=== PATIENT | female | born 1980 | race Caucasian/White ===

== ENCOUNTER → 2024-05-01 | Outpatient (CLI) | payer OTHER ==
[2024-05-01 18:46] LABS: Basophils # (A) 0.03 X 10*3/uL (0.00-0.10); Basophils % (A) 0.5 %; Eosinophils # (A) 0.17 X 10*3/uL (0.04-0.35); Eosinophils % (A) 2.6 %; HCT 45.1 % (37.2-46.3); HGB 14.7 g/dL (12.0-15.0); Lymphocytes # (A) 1.64 X 10*3/uL (0.90-5.00); Lymphocytes % (A) 24.7 %; MCH 31.5 pg (27.0-32.0); MCHC 32.6 g/dL (32.0-37.0); MCV 96.6 FL (80.0-97.0); Mean Platelet Volume 9.8 FL (9.5-12.2); Monocytes # (A) 0.32 X 10*3/uL (0.20-1.00); Monocytes % (A) 4.8 %; NRBC Per 100 WBC 0 X 10*3/uL (0.00-0.01); Neutrophils # (A) 4.46 X 10*3/uL (1.80-7.70); Neutrophils % (A) 67.1 %; Platelet Count 279 X 10*3/uL (140-440); RBC 4.67 X 10*6/uL (4.10-5.20); RDW 12.3 % (11.5-14.5); WBC 6.64 X 10*3/uL (4.50-10.00)
[2024-05-01 18:55] LABS: Blood Urea Nitrogen 12.8 mg/dL (9.0-27.0); Carbon Dioxide 24.1 mmol/L (21.6-31.8); Chloride 102 mmol/L (96-109); Glucose 138 mg/dL (70-110); Sodium 141 mmol/L (135-145)
== END | disposition home or self-care (01) ==
LOC: LABPAT 12:08
PROVIDERS: ATTEND Obstetrics & Gynecology Obstetrics
DX: Z01.812 Encounter for preprocedural laboratory examination (principal); D25.9 Leiomyoma of uterus, unspecified; N85.2 Hypertrophy of uterus; N92.0 Excessive and frequent menstruation with regular cycle
CPT/HCPCS: 36415; 80051; 82565; 82947; 84520; 85025; 86850; 86900; 86901; 87086

== ENCOUNTER 2024-05-09 06:44 | Day surgery (SDC) | payer OTHER ==
[2024-05-06 10:22] VITALS: BMI 25.7
[2024-05-09] MEDS ORDERED: fentaNYL (PF) 50 MCG/ML 2 ML AMP IVP PRN (07:29)
[2024-05-09] MEDS ORDERED: MIDAZOLAM 2 MG/2 ML VIAL IV PRN (07:29)
[2024-05-09] MEDS ORDERED: HYDROmorphone 0.5 MG/0.5 ML SYRINGE IVP PRN ×2 (07:29→08:18)
[2024-05-09] MEDS: LACTATED RINGERS 1,000 ML IV SCH (07:35)
[2024-05-09] MEDS: LIDOCAINE 1% (10MG/ML) FOR IV START INTRADERMA PRN (07:35)
[2024-05-09] MEDS: IV FLUID CONTINUATION 1,000 ML IV ONE (07:35)
[2024-05-09] MEDS: MIDAZOLAM 2 MG/2 ML VIAL IVP ONE (07:55)
[2024-05-09] MEDS: fentaNYL (PF) 50 MCG/ML 2 ML AMP IVP ONE (07:55)
[2024-05-09] MEDS: ONDANSETRON 4 MG/2 ML VIAL IVP ONE (08:06)
[2024-05-09] MEDS: DEXAMETHASONE SOD PHOSPHATE 4 MG/ML 1 ML VIAL IV ONE (08:06)
--- NOTE | 2024-05-09 08:08 | P.ANPRN ---
Procedure Note - Anesthesia - Epidural/Spinal Spinal Time Out Performed: Yes Date of Procedure: 05/09/24 Procedure Start Time: 07:55 Procedure Stop Time: 08:02 Location of Patient: PreOp Indication: Acute Post-Operative Pain, Requested by Surgeon Sedation Type: Sedate with meaningful contact maintained Preparation: Sterile Prep Position: Sitting Needle Guage: 25 Blood Aspirated: No Pain Paresthesia on Injection Noted: No Events: Uneventful and Well Tolerated
--- NOTE | 2024-05-09 08:16 | P.HPOB ---
History of Present Illness H&P Date: 05/09/24 Chief Complaint: Enlarged fibroid uterus, DUB, dysmenorrhea,HMB 43-year-old 2 para 2 presents with complaints of dysfunctional uterine bleeding, dysmenorrhea, menorrhagia. Ultrasound was performed revealing an enlarged uterus at 17 cm, largest fibroid being fundal at 7 cm. Patient notes menstrual cycles to be heavy with clots despite Mirena placement. Patient was counseled on options for definitive treatment given uterine size and fibroids. Patient is not a candidate for endometrial ablation given uterine size. Patient wishes definitive treatment with hysterectomy. LACTATION CONSULTANT history Menstrual cycles are regular in nature heavy with clots 2 para 2 2 prior spontaneous vaginal deliveries #1 8 pounds 10 ounces #2 8 pounds Review of Systems Constitutional: Denies chills, Denies fatigue, Denies fever Ears, nose, mouth and throat: Denies headache Cardiovascular: Denies leg edema Respiratory: Denies dyspnea Gastrointestinal: Denies nausea, Denies vomiting Genitourinary: Reports dysmenorrhea, Reports menorrhagia, Reports pelvic pain, Denies Menstruation: Reports menses variable, Reports period heavy Past Medical History Additional Past Medical History / Comment(s): RT-TMJ. UTERINE FIBROIDS History of Any Multi-Drug Resistant Organisms: None Reported Past Surgical History: Appendectomy, Breast Surgery Additional Past Surgical History / Comment(s): BENIGN CYST REMOVED LT BREAST Past Anesthesia/Blood Transfusion Reactions: No Reported Reaction Smoking Status: Never smoker - Past Family History Mother Family Medical History: No Reported History Medications and Allergies Home Medications Medication Instructions Recorded Confirmed Type OXcarbazepine [Trileptal] 150 mg PO BID 05/06/24 05/06/24 History diazePAM 2 mg PO TID PRN 05/06/24 05/06/24 History levonorgestreL [Mirena] 1 each IY DIRECTED 05/06/24 05/06/24 History Allergies Allergy/AdvReac Type Severity Reaction Status Date / Time No Known Allergies Allergy Verified 05/09/24 07:32 Exam Osteopathic Statement: *. No significant issues noted on an osteopathic structural exam other than those noted in the History and Physical/Consult. Vital Signs Temp Pulse Resp BP Pulse Ox 05/09/24 07:35 98.7 F 90 16 150/75 97 Intake and Output 05/08/24 05/09/24 05/09/24 22:59 06:59 14:59 Other: Weight 70 kg Targeted physical exam is performed this date General is a well-nourished well- developed non female in no acute distress, breathing is nonlabored, heart has a regular rate and rhythm, abdomen is soft and nontender, on genitourinary exam external genitalia is noted to be normal for age no lesions are present vaginal tissue is pink and well-rugated the cervix is healthy with no lesions appreciated, uterus is nontender position is midline enlarged with limited mobility secondary to size. No adnexal masses are appreciated Assessment and Plan (1) Fibroid uterus Current Visit: Yes Status: Acute Code(s): D25.9 - LEIOMYOMA OF UTERUS, UNSPECIFIED SNOMED Code(s): 02058983 (2) Heavy menstrual bleeding Current Visit: Yes Status: Acute Code(s): N92.0 - EXCESSIVE AND FREQUENT MENSTRUATION WITH REGULAR CYCLE SNOMED Code(s): 163551865 (3) Dysmenorrhea Current Visit: Yes Status: Acute Code(s): N94.6 - DYSMENORRHEA, UNSPECIFIED SNOMED Code(s): 868681394 (4) Pelvic pain Current Visit: Yes Status: Acute Code(s): R10.2 - PELVIC AND PERINEAL PAIN SNOMED Code(s): 69833141 Plan: 43-year-old 2 para 2 presents for robotic assisted vaginal hysterectomy with bilateral salpingectomy, diagnostic cystoscopy, possible open to complete procedure. Patient is counseled extensively on size of the uterus and difficulty of case given size of the uterus. Patient is strongly desirous of a robotic procedure. Patient is counseled on risks of surgery including but not limited to infection, bleeding, damage to bladder, bowel, ureteric injury given size of uterus. Patient states understanding of these risks and wishes to proceed. Patient is desirous of ovarian conservation.
[2024-05-09] MEDS ORDERED: NALOXONE 0.4 MG/ML 1 ML VIAL IV PRN (08:18)
[2024-05-09] MEDS ORDERED: ONDANSETRON 4 MG/2 ML VIAL IVP PRN ×2 (08:18→11:38)
[2024-05-09] MEDS ORDERED: KETOROLAC 15 MG/ML 1 ML VIAL IVP PRN (08:18)
[2024-05-09] MEDS ORDERED: diphenhydrAMINE 50 MG/ML 1 ML VIAL IVP PRN (08:18)
[2024-05-09] MEDS ORDERED: MIDAZOLAM 2 MG/2 ML VIAL ONE (08:47)
[2024-05-09] MEDS ORDERED: LIDOCAINE 1% INJ 10MG/ML (20 ML MDV) ONE (08:47)
[2024-05-09] MEDS ORDERED: SUCCINYLCHOLINE CHLORIDE 200 MG/10 ML VIAL IV ONE (08:47)
[2024-05-09] MEDS ORDERED: HYDROmorphone (PF) 1 MG/ML ONE (08:47)
[2024-05-09] MEDS ORDERED: PROPOFOL 10 MG/ML 20 ML VIAL IV ONE (08:47)
[2024-05-09] MEDS ORDERED: ROCURONIUM 10 MG/ML (5 ML VIAL) IV ONE (08:47)
[2024-05-09] MEDS ORDERED: GLYCOPYRROLATE 0.2 MG/ML 2 ML VIAL ONE (08:47)
[2024-05-09] MEDS ORDERED: NEOSTIGMINE 1 MG/ML 10 ML VIAL ONE (08:47)
[2024-05-09] MEDS ORDERED: fentaNYL (PF) 50 MCG/ML 2 ML AMP ONE (08:47)
[2024-05-09] MEDS: BUPIVACAINE (PF) 0.25% 30 ML VIAL SQ ONE ×2 (10:03→11:25)
[2024-05-09] MEDS: LACTATED RINGERS 1,000 ML IV ONE ×2 (10:07→10:35)
[2024-05-09] MEDS ORDERED: Acetaminophen-Codeine 300-30mg TAB PO PRN (11:38)
--- NOTE | 2024-05-09 11:38 | P.OP ---
Date of Procedure: 05/09/24 Preoperative Diagnosis: Enlarged fibroid uterus, dysmenorrhea, pelvic pain, heavy menstrual bleeding, failed medical treatment Postoperative Diagnosis: Same Procedure(s) Performed: Robotic assisted vaginal hysterectomy, bilateral salpingectomy, diagnostic cystoscopy Anesthesia: DARLIN Surgeon: January Bermudez Hand Polisher #1: Marito Dye Estimated Blood Loss (ml): 80 IV fluids (ml): 1,000 Urine output (ml): 400 Pathology: other (Uterus bilateral fallopian tubes and cervix, multiple fibroids) Condition: stable Disposition: PACU Indications for Procedure: Noted enlarged uterus measuring 17 cm on ultrasound, largest fibroid measuring 7 cm fundal in nature. Normal ovaries bilaterally. Patient failed medical treatment for heavy menstrual bleeding. Patient had noted irregular cycles with heavy bleeding and clots. Operative Findings: Enlarged uterus with multiple fibroids. Normal ovaries bilaterally. Normal cystoscopy performed after procedure. Bladder mucosa normal in nature both ureteral orifices noted to be spilling clear yellow urine Description of Procedure: Patient was taken back to the operating suite where general anesthesia was obt ained without difficulty by the anesthesia department. She was prepped and draped in the normal sterile fashion in the dorsolithotomy position. A Waldrop catheter was placed under sterile technique. A weighted speculum was placed in the posterior vaginal vault the antilipid the cervix was visualized and grasped with a single-tooth tenaculum. The cervix was then serially dilated and a KeyViveare uterine manipulator was advanced into the uterus as a means to manipulate the uterus throughout the procedure. The balloon was insufflated with air and the cervical cap was placed snugly against the cervix. At this time all instruments were removed from the patient's vaginal vault. Attention was then turned the patient's abdomen where approximately 4 fingerbreadths above the umbilicus a small skin incision is made. Through this incision the Veress needle was placed, once the Veress needle was deemed to be in the appropriate position with a drop of CO2 pressure with the insufflation of CO2 gas CO2 insufflation was allowed to occur. Approximately 3 L of gas were used to obtain pneumoperitoneum. At this time an 8 mm trocar and sleeve with the laparoscope in place was placed through the skin incision and toward the pneumoperitoneum. The above-noted findings were visualized. The additional port sites are now placed at 10 cm lateral and 3 cm inferior to the midline port these are 8 mm ope rative ports placed under direct visualization. In the left upper quadrant a 12 mm skin incision is made and a 12 mm trocar and sleeve is placed under direct visualization. The da Ethan robot was then docked in the usual fashion. The operative arms are now placed the right operative arm the monopolar scissors, and the left operative arm the bipolar forceps is placed. The uterus was then elevated and displaced to the right the left fallopian tube was elevated the mesosalpinx was grasped coagulated distally proximally and divided to the utero- ovarian ligament. The utero-ovarian ligament was then coagulated distally and proximally and divided. This continued through the broad and toward the round which was visualized coagulated and transected. An anterior fibroid was appreciated the bladder flap was taken taken down sharply. Attention then turned to the patient's right fallopian tube which was elevated the mesosalpinx was coagulated and transected. The utero-ovarian ligament was visualized coagulated distally and proximally and divided. This continued through the broad toward the round which was coagulated and transected. Hemostasis was noted throughout. The bladder flap from the right was then created using sharp and blunt dissection. Multiple large vascular pedicle was visualized coagulated and transected. This was then repeated on the opposite side. The uterine a rtery on both sides was visualized coagulated and transected. At this time the only main attachment was a vaginal attachment therefore colpotomy incision was made in a circumferential fashion. The uterus was quite large and transected into 3 separate pieces and delivered through the vaginal vault. The pelvis was then copiously irrigated. Hemostasis was noted on the vaginal cuff. The vaginal cuff was closed with multiple uokaec-ia-[id number] sutures of 0 Vicryl. Approximately 5 sutures were used to close the vaginal cuff. Hemostasis was noted Surgicel powder was placed along the surgical cuff. At this time all instruments removed from the patient's abdomen and the da Ethan was undocked in the usual fashion. Cystoscopy was then performed. The Waldrop was removed clear yellow urine was noted in the catheter. Cystoscope was placed through the urethra and toward the bladder bladder bubble was appreciated a complete survey of bladder mucosa revealed no injury both ureteral orifices were noted be spilling clear yellow urine. Cystoscope was removed and the Waldrop catheter was replaced. Attention was then turned to the patient's abdomen where the skin incisions were closed with 4-0 Vicryl in a subcuticular fashion. Steri-Strips and sterile dressings were applied. All counts were noted be correct x 2 at the end of the procedure. Patient tolerated procedure well and was taken the recovery room awake in stable condition.
[2024-05-09 12:59] VITALS: RESP 16
[2024-05-09] MEDS: ACETAMINOPHEN IV (For NPO) 1,000 MG in EMPTY BAG 1 BAG IVPB ONE (16:04)
--- NOTE | 2024-05-09 16:58 | P.PN ---
Progress Note - Text Progress Note Date: 05/09/24 43-year-old status post robotic assisted vaginal hysterectomy, bilateral salpingectomy, diagnostic cystoscopy. Patient is doing well postoperatively. Waldrop catheter remains draining clear yellow urine. She denies pain. Vital signs stable In general well-nourished well-developed female no acute distress Abdomen is soft and nontender Waldrop catheter is at the bedside draining clear yellow urine Assessment Postop day 0, robotic assisted vaginal hysterectomy, bilateral salpingectomy, diagnostic cystoscopy Plan Continue routine postoperative care, plan discontinuation of the Waldrop at 5 AM. Anticipate discharge home tomorrow
[2024-05-09] MEDS: OXcarbazepine 150 MG TAB PO SCH (19:35)
[2024-05-09] MEDS: SENNOSIDES-DOCUSATE SODIUM 1 EACH TAB PO SCH (19:35)
[2024-05-09] MEDS: IBUPROFEN IV 800 MG in SODIUM CHLORIDE 0.9% 250 ML IV ONE (19:36)
[2024-05-09] MEDS: SIMETHICONE 80 MG CHEWABLE PO PRN (19:36)
[2024-05-10] MEDS: Acetaminophen-Codeine 300-30mg TAB PO PRN (04:16)
[2024-05-10 05:42] LABS: Basophils % (A) 0 %; Eosinophils # (A) 0.1 k/uL (0-0.7); Eosinophils % (A) 1 %; HGB 13.3 gm/dL (11.4-16.0); Lymphocytes # (A) 1.7 k/uL (1.0-4.8); Lymphocytes % (A) 17 %; MCH 31.3 pg (25.0-35.0); MCHC 32.3 g/dL (31.0-37.0); MCV 96.7 fL (80.0-100.0); Mean Platelet Volume 7.7; Monocytes # (A) 0.6 k/uL (0-1.0); Monocytes % (A) 6 %; Neutrophils # (A) 7.2 k/uL (1.3-7.7); Neutrophils % (A) 74 %; Platelet Count 211 k/uL (150-450); RBC 4.24 m/uL (3.80-5.40); RDW 12.2 % (11.5-15.5); WBC 9.7 k/uL (3.8-10.6)
[2024-05-10] MEDS: IBUPROFEN 600 MG TAB PO PRN (07:54)
[2024-05-10 08:43] VITALS: BP 108/63; PULSE 82; TEMP 98.2
--- NOTE | 2024-05-10 09:36 | P.PN ---
Progress Note - Text 05/10/24 636am 43-year-old female status post vaginal hysterectomy with spinal Duramorph. Patient seen and evaluated for postop pain control, patient has a VAS of 0 with no complaint of nausea vomiting or pruritus
--- NOTE | 2024-05-10 10:02 | P.DS ---
Providers Date of admission: 05/09/2024 Expected date of discharge: 05/10/24 Attending physician: January Bermudez Primary care physician: Nadira Garcia - Discharge Diagnosis(es) (1) Fibroid uterus Current Visit: Yes Status: Acute (2) Heavy menstrual bleeding Current Visit: Yes Status: Acute (3) Dysmenorrhea Current Visit: Yes Status: Acute (4) Pelvic pain Current Visit: Yes Status: Acute Hospital Course: 43 yo that presented on 05/09 for scheduled robotic assisted vaginal hysterectomy, bilateral salpingectomy, diagnostic cystoscopy. Patient has a known history of an enlarged uterus with multiple uterine fibroids, failed medical treatment, pelvic pain, dysmenorrhea. For full details on this patient please see the dictated history and physical. Patient is was taken back to the operating suite where procedure was completed without difficulty. For full details on the procedure please see the dictated operative report. Patient's postoperative course has been essentially uneventful. On this postoperative day #1 she is ambulating and voiding without difficulty. She is tolerating a regular diet without nausea or vomiting. She states her pain is well-controlled with oral Tylenol 3. She would like discharge home later this morning. Patient Condition at Discharge: Good Plan - Discharge Summary Discharge Rx Participant: Yes New Discharge Prescriptions: No Action diazePAM 2 mg PO TID PRN PRN Reason: Anxiety levonorgestreL [Mirena] 1 each IY DIRECTED OXcarbazepine [Trileptal] 150 mg PO BID Discharge Medication List OXcarbazepine [Trileptal] 150 mg PO BID 05/06/24 [History] diazePAM 2 mg PO TID PRN 05/06/24 [History] levonorgestreL [Mirena] 1 each IY DIRECTED 05/06/24 [History] Follow up Appointment(s)/Referral(s): January Bermudez DO [Doctor of Osteopathic Medicine] - 2 Weeks Patient Instructions/Handouts: Laparoscopic Hysterectomy (DC), Laparoscopic Hysterectomy (GEN) Activity/Diet/Wound Care/Special Instructions: No intercourse, tampons or douching. No heavy lifting greater than a gallon of milk. No driving for two weeks. Call with any fever, shakes or chills, with any pain not alleviated by over the counter meds, or with any quesions or concerns. [id number] ibuprofen 600 mg or 3 tablets every 6 hours as needed for pain. In addition patient is requesting Tylenol 3 prescription this will be given and instructions are reviewed. Discharge Disposition: HOME SELF-CARE
[2024-05-10] MEDS ORDERED: ACETAMINOPHEN TAB 325 MG TAB PO PRN (11:39)
== END 2024-05-10 13:05 | disposition home or self-care (01) ==
LOC: OR 06:44 → 4FBP 11:26 → OR 05-10 13:00
PROVIDERS: ATTEND Obstetrics & Gynecology Obstetrics
DX: D25.1 Intramural leiomyoma of uterus (principal); N72 Inflammatory disease of cervix uteri; N85.8 Other specified noninflammatory disorders of uterus; G89.18 Other acute postprocedural pain; Z90.49 Acquired absence of other specified parts of digestive tract; Z86.018 Personal history of other benign neoplasm
CPT/HCPCS: 58552; S2900; 81025; 85025; 88307

== ENCOUNTER → 2024-07-17 | Outpatient (CLI) | payer OTHER ==
--- NOTE | 2024-07-21 12:04 | MM ---
Reason for Exam: Screening (asymptomatic). Baseline mammogram. Patient History: Menarche at age 10. First Full-Term at age 22. Hysterectomy at age 43. Patient has history of breast feeding. 03/27/1996, Benign Excisional Biopsy on the left side. Risk Values: Sarahi 5 year model risk: 1.2%. NCI Lifetime model risk: 10.4%. Prior Study Comparison: Patient's first Mammogram. Tissue Density: There are scattered areas of fibroglandular density. Findings: Analyzed By CAD. Right breast: There is no suspicious group of microcalcifications or new suspicious mass. Left breast: There is no suspicious group of microcalcifications or new suspicious mass. Scattered bilateral masslike areas of fibroglandular tissue. Overall Assessment: Incomplete: need additional imaging evaluation, BI-RAD 0 Management: Diagnostic Mammogram of both breasts. [facility] will attempt to contact patient to return for supplemental views and ultrasound if indicated. Patient should continue monthly self-breast exams. A clinical breast exam by your physician is recommended on an annual basis. This exam should not preclude additional follow-up of suspicious palpable abnormalities. Note on Sarahi scores and lifetime risk: 1. A Sarahi score greater than 3% is considered moderate risk. If this is the case, consider specialist referral to assess eligibility for a risk reducing agent. 2. If overall lifetime risk for the development of breast cancer is 20% or higher, the patient may qualify for future screening with alternating mammogram and breast MRI. Electronically signed and approved by: Gutierrez Orourke DO
== END | disposition home or self-care (01) ==
LOC: RADMAMWWP 16:34
PROVIDERS: ATTEND Obstetrics & Gynecology
DX: Z12.31 Encounter for screening mammogram for malignant neoplasm of breast
CPT/HCPCS: 77063; 77067

== ENCOUNTER → 2024-07-25 | Outpatient (CLI) | payer OTHER ==
--- NOTE | 2024-07-25 09:36 | USB ---
Reason for Exam: Additional evaluation requested from abnormal screening. Patient History: Menarche at age 10. First Full-Term at age 22. Hysterectomy at age 43. Patient has history of breast feeding. 03/27/1996, Benign Excisional Biopsy on the left side. Risk Values: Sarahi 5 year model risk: 1.2%. NCI Lifetime model risk: 10.4%. Technique: Method: Targeted. Prior Study Comparison: 07/17/2024 Bilateral MG 3D screening mammo w/cad, [facility]. Findings: The upper outer quadrant of the right breast, the lower inner quadrant of the left breast, the axilla of both breasts and the retroareolar of both breasts were scanned. Right breast: Elongated smoothly marginated hypoechoic lesion at the right 12:00 position measuring 1.3 x 0.5 cm likely reflects a fibroadenoma. Six-month follow-up is recommended. Additional smaller cystic lesions noted at the 12:00 position 7 cm from the nipple measuring 0.5 x 0.3 cm and at 9:00 position 9 cm from the nipple measuring 0.6 x 2.4 cm.. Left breast: Hypoechoic left breast cyst 6:00 position measuring 5 x 3 mm also retroareolar hypoechoic cyst measuring 0.5 x 8.4 cm. Overall Assessment: Probably benign, BI-RAD 3 Management: Diagnostic Breast Ultrasound of the right breast in 6 months. A clinical breast exam by your physician is recommended on an annual basis and results should be correlated with mammographic findings. This exam should not preclude additional follow-up of suspicious palpable abnormalities. Results were given to the patient verbally at the time of exam. Electronically signed and approved by: Odell Last M.D. Radiologis
--- NOTE | 2024-07-25 09:50 | MM ---
Reason for Exam: Additional evaluation requested from abnormal screening. Last screening mammogram was performed less than 1 month ago. Patient History: Menarche at age 10. First Full-Term at age 22. Hysterectomy at age 43. Patient has history of breast feeding. 03/27/1996, Benign Excisional Biopsy on the left side. Risk Values: Sarahi 5 year model risk: 1.2%. NCI Lifetime model risk: 10.4%. Prior Study Comparison: 07/17/2024 Bilateral MG 3D screening mammo w/cad, [facility]. Tissue Density: The breasts are heterogeneously dense, which may obscure small masses. Findings: Analyzed By CAD. Nodular densities upper outer right breast and upper inner left breast for which ultrasound is recommended. Overall Assessment: Incomplete: need additional imaging evaluation, BI-RAD 0 Management: Diagnostic Breast Ultrasound of both breasts. . Results were given to the patient verbally at the time of exam. Patient should continue monthly self-breast exams. A clinical breast exam by your physician is recommended on an annual basis. This exam should not preclude additional follow-up of suspicious palpable abnormalities. Note on Sarahi scores and lifetime risk: 1. A Sarahi score greater than 3% is considered moderate risk. If this is the case, consider specialist referral to assess eligibility for a risk reducing agent. 2. If overall lifetime risk for the development of breast cancer is 20% or higher, the patient may qualify for future screening with alternating mammogram and breast MRI. Electronically signed and approved by: Odell Last M.D. Radiologis
== END | disposition home or self-care (01) ==
LOC: RADMAMWWP 08:30
PROVIDERS: ATTEND Obstetrics & Gynecology
DX: R92.8 Other abnormal and inconclusive findings on diagnostic imaging of breast
CPT/HCPCS: 77062; 77066

== ENCOUNTER → 2025-05-12 | Outpatient (CLI) | payer BC, OTHER ==
--- NOTE | 2025-05-12 12:43 | USB ---
Reason for Exam: Follow-up at short interval from prior study. Patient History: Menarche at age 10. First Full-Term at age 22. Hysterectomy at age 43. Patient has history of breast feeding. 03/27/1996, Benign Excisional Biopsy on the left side. Risk Values: Sarahi 5 year model risk: 1.1%. NCI Lifetime model risk: 10.2%. Technique: Method: Targeted. Prior Study Comparison: 07/17/2024 Bilateral MG 3D screening mammo w/cad, [facility]. 07/25/2024 Bilateral MG 3D work up w/cad [facility], [facility]. Findings: The upper outer quadrant of the right breast, the axilla of the right breast and the retroareolar of the right breast were scanned. Targeted ultrasound right breast upper outer quadrant along with scanning of the subareolar region and axilla. At the 10:00 position, 10 CFN, there is an oval hypoechoic lesion with posterior through transmission measuring 1.7 x 1.6 x 0.5 cm. This was not seen previously but may have looked like a prominent fat lobule to the prior steam bone press tender. This can be reassessed at follow-up. At the 12:00 position, 7 cm from the nipple, there is a stable oval circumscribed hypoechoic area with through transmission measuring 1.4 x 1.1 x 0.4 cm. Unchanged for 9 months. Ongoing follow-up can be performed. At the 12:00 position, 3 cm from the nipple, there is a small benign 6 mm cyst. At the 9:00 position, 9 cm from the nipple, there is a vague hypoechoic lesion measuring 4 x 4 x 4 mm. This is stable for 9 months and continued follow-up is recommended. No other solid or cystic lesion or axillary adenopathy. Overall Assessment: Probably benign, BI-RAD 3 Management: Diagnostic Mammogram of both breasts in 3 months. Diagnostic Breast Ultrasound of the right breast in 3 months. In time for the patient's annual exam. This will be a total one-year follow-up for right breast findings. A clinical breast exam by your physician is recommended on an annual basis and results should be correlated with mammographic findings. This exam should not preclude additional follow-up of suspicious palpable abnormalities. Results were given to the patient verbally at the time of exam. [facility], , 05/12/2025 12:40 PM. Electronically signed and approved by: Donn Cordoba M.D. Radiologist
== END | disposition home or self-care (01) ==
LOC: RADUSWWP 10:31
PROVIDERS: ATTEND Family Medicine
DX: R92.8 Other abnormal and inconclusive findings on diagnostic imaging of breast (principal); N60.01 Solitary cyst of right breast